=== PATIENT | male | born 1965 | race Caucasian/White ===

== ENCOUNTER 2021-02-08 08:00 | Outpatient (CLI) | payer BC, SELFPAY ==
--- NOTE | ~2021-02-08 | CT_ITS ---
EXAMINATION: CT lung screening DATE: 02/08/2021 08:19 INDICATION: TOBACCO DEPENDENCE TECHNIQUE: Computed tomography (CT) of the chest was performed without intravenous contrast. Addition al 3D reconstructions utilizing coronal maximum intensity projection (MIP) were performed. Automated exposure control and iterative reconstruction technique were employed. The dose-length product was 19 5.69 mGy-cm. COMPARISON: 10/10/2016 FINDINGS: Severe bullous emphysema at the bilateral apices of lungs. Peripheral reticular opacities with basila r predominance which could represent mild atelectasis, pulmonary edema or more chronic interstitial l errol disease with either nonspecific interstitial pneumonia (NSIP) or usual interstitial pneumonia (UI P) pattern chronic interstitial lung disease. 6 mm left lower lobe nodule, unchanged since CT abdomen dated 10/10/2016. 3-4 mm triangular likely intrafissural lymph node along the right minor fissure. A c ouple additional 2-3 mm nodules in the region of the junction of the lingula and left upper lobe. No pleural effusion. Heart size is normal. Small amount of scattered atherosclerotic coronary artery ger cific lesion. No pericardial effusion. Thoracic aorta is normal in caliber. No pathologically enlarge d thoracic lymphadenopathy. Mild bilateral gynecomastia. Visualized upper abdomen is unremarkable. Mi ld thoracic spondylosis with chronic appearing mild anterior wedging at T11-L1. IMPRESSION: 1. Lung-RADS category 2: Benign appearance or behavior. Continue annual screening with noncontrast lo w-dose chest CT in 12 months. 2. Emphysema with severe bullous changes at the apices. 2. Peripheral irregular septal line thickening with differential including atelectasis, pulmonary steve ma and NSIP/UIP pattern chronic interstitial fibrosis. Reviewed, dictated and finalized at location A. IMPRESSION: 1. Lung-RADS category 2: Benign appearance or behavior. Continue annual screeni ng with noncontrast low-dose chest CT in 12 months. 2. Emphysema with severe bullous changes at the apices. 2. Peripheral irregular septal line thickening with differential including atel ectasis, pulmonary edema and NSIP/UIP pattern chronic interstitial fibrosis.
== END 2021-02-08 08:01 | disposition home or self-care (01) ==
PROVIDERS: PCP Emergency Medicine; Visit Provider Emergency Medicine
DX: Z12.2 Encounter for screening for malignant neoplasm of respiratory organs (principal); Z87.891 Personal history of nicotine dependence; J43.9 Emphysema, unspecified; R91.8 Other nonspecific abnormal finding of lung field
CPT/HCPCS: 71271

== ENCOUNTER 2021-10-11 08:53 | Outpatient (CLI) | payer BC, SELFPAY ==
--- NOTE | 2021-10-11 09:06 | EST_ITS ---
Patient Info Name: Andrey Cárdenas Age: 56 years : 1965 Gender: Male Ht: 70 in Wt: 214 lbs BSA: 2.22 m2 BP: 198 / 83 mmHg Exam Date: 10/11/2021 9:26 AM Exam Location: [facility] Patient Status: Outpatient Admit Date: 10/11/2021 Staff Ordering Physician: Ken Blanchard DO Printed Circuit Designer: Lukas Dean RDCS, RT Attending Provider: Referring Physician: Santo NUÑEZ; Exam Type: CA stress echo Study Info Indications I10 - Essential (primary) hypertension Treadmill exercise stress echocardiogram is performed. Summary 1. 1. Negative Buster exercise stress test for ischemic ST changes by ECG criteria. 2. 2. Reduced functional capacity, achieving 7 METs of workload. 3. 3. Appropriate HR response to exercise. 4. 4. Appropriate HR recovery at 1 minute post exercise. 5. 5. Suboptimal stress echocardiogram portion of test as parasternal images were not well seen. Based on apical images, there is no evidence of ischemia by wall motion analysis. 6. 6. Patient informed of the above results. Stress Echo Findings Left Ventricle Suboptimal portion of study as parasternal images were not well seen. Apical 4 chamber and apical 2 chambers demonstrate normal LV endocardial thickening with systole and appropriate contractility with systole. Left Ventricle Normal LV sysotlic function, no wall motion abnormality. Protocol: Buster Stress ECG Details Stage: REST Duration (min): 0 min : 53 sec Speed (mph): 0.0 Grade (%): 0 HR (bpm): 73 SBP (mmHg): 127 DBP (mmHg): 67 METS: --- Stage: REST Duration (min): 8 min : 8 sec Speed (mph): 0.0 Grade (%): 0 HR (bpm): 76 SBP (mmHg): 127 DBP (mmHg): 67 METS: --- Stage: STAGE 1 Duration (min): 1 min : 0 sec Speed (mph): 1.7 Grade (%): 10 HR (bpm): 104 SBP (mmHg): 127 DBP (mmHg): 67 METS: --- Stage: STAGE 1 Duration (min): 2 min : 0 sec Speed (mph): 1.7 Grade (%): 10 HR (bpm): 104 SBP (mmHg): 127 DBP (mmHg): 67 METS: --- Stage: STAGE 1 Duration (min): 3 min : 0 sec Speed (mph): 1.7 Grade (%): 10 HR (bpm): 111 SBP (mmHg): 198 DBP (mmHg): 83 METS: --- Stage: STAGE 2 Duration (min): 1 min : 0 sec Speed (mph): 2.5 Grade (%): 12 HR (bpm): 127 SBP (mmHg): 198 DBP (mmHg): 83 METS: --- Stage: STAGE 2 Duration (min): 2 min : 0 sec Speed (mph): 2.5 Grade (%): 12 HR (bpm): 139 SBP (mmHg): 211 DBP (mmHg): 91 METS: --- Stage: STAGE 2 Duration (min): 2 min : 32 sec Speed (mph): 0.0 Grade (%): 0 HR (bpm): 143 SBP (mmHg): 211 DBP (mmHg): 91 METS: --- Stage: RECOVERY Duration (min): 0 min : 27 sec Speed (mph): 0.0 Grade (%): 0 HR (bpm): 130 SBP (mmHg): 211 DBP (mmHg): 91 METS: --- Stage: RECOVERY Duration (min): 1 min : 27 sec Speed (mph): 0.0 Grade (%): 0 HR (bpm): 109 SBP (mmHg): 211 DBP (mmHg): 91 METS: ---
== END 2021-10-11 08:54 | disposition home or self-care (01) ==
PROVIDERS: PCP Emergency Medicine; Visit Provider Internal Medicine Cardiovascular Disease
DX: I10 Essential (primary) hypertension (principal)
CPT/HCPCS: 93351